=== PATIENT | female | born 1940 | race Caucasian/White ===

== ENCOUNTER 2018-10-13 08:19 | Day surgery (SDC) | payer MEDICARE, OTHER ==
[~2018-10-13] VITALS: Ht 152.4 cm; Wt 61.9 kg
[~2018-10-13 08:19] MED LIST: ACYC400T PO; ASPI-611 PO; BORT3.5V; CHOL200026 PO; DEC4T PO; DOCU100C41 PO; GABA-532 PO; LENA25CA PO; ONDA8TAB9 PO; OXYC10TA86 PO; POLY17PO10 PO; [UNRECOGNIZED DRUG - CODE] PO
[2018-10-13 08:34] VITALS: BP 119/95
[2018-10-13] MEDS ORDERED: LIDOcaine 1% 30ml preserv. free vial SQ ONE (09:00)
[2018-10-13] MEDS ORDERED: CALC600T12 PO (09:01)
[2018-10-13] MEDS ORDERED: FMLOS EACHEYE (09:01)
[2018-10-13] MEDS ORDERED: GABA600T13 PO (09:01)
[2018-10-13 09:34] VITALS: BP 112/68
[2018-10-13 09:45] VITALS: BP 119/72
[2018-10-13 10:00] VITALS: BP 123/73
[2018-10-13 10:15] VITALS: BP 120/70
== END 2018-10-13 10:27 | disposition home or self-care (01) ==
LOC: SSTAY O 08:19
PROVIDERS: ATTEND Radiology Diagnostic Radiology
DX: R22.1 Localized swelling, mass and lump, neck (principal)
CPT/HCPCS: 10160; 76942; J3490

== ENCOUNTER 2019-12-12 06:21 | Day surgery (SDC) | payer MEDICARE, OTHER ==
[2019-12-12] VITALS (8 sets, daily range): BP systolic 87–119; BP diastolic 37–53
[~2019-12-12] VITALS: Ht 152.4 cm; Wt 54.8 kg
[~2019-12-12 06:21] MED LIST changes: +CALC600T12 PO; +FMLOS EACHEYE; -GABA-532 PO; +GABA600T13 PO; -ONDA8TAB9 PO; -POLY17PO10 PO
[2019-12-12] MEDS ORDERED: normal saline 1000ml 1,000 ML IV PRN (06:45)
[2019-12-12] MEDS ORDERED: cefazolin/dext.iso 2gm/100ml 50 ML IV ONE (06:45)
[2019-12-12 07:53] LABS: HEMATOCRIT 30.7 % (35.0-45.0); HEMOGLOBIN 10.1 g/dl (12.0-16.0); MEAN CORPUSCULAR HEMOGLOBIN 30.6 PG (27.0-31.0); MEAN CORPUSCULAR HGB CONC 32.8 g/dL (33.0-36.5); MEAN CORPUSCULAR VOLUME 93.4 FL (78-98); MEAN PLATELET VOLUME 10.4 FL (7.4-10.4); PLATELET COUNT 105 X10'3 (140-440); RED BLOOD COUNT 3.28 X10'6 (4.20-5.60); RED CELL DISTRIBUTION WIDTH 16.6 % (11.5-14.5); WHITE BLOOD COUNT 1.2 X10'3 (4.5-11.0)
[2019-12-12 08:14] LABS: ANISOCYTOSIS 1+; PLATELET ESTIMATE DECREASED; TOTAL CELLS COUNTED 100
[2019-12-12] MEDS ORDERED: LIDOcaine 1%/PF 5ML 10 MG/ML VIAL ONE (08:47)
[2019-12-12] MEDS ORDERED: diphenhydrAMINE 50 mg/ml inj ONE (08:47)
[2019-12-12] MEDS ORDERED: fentaNYL/PF 50MCG/1 ML 2ML syringe ONE ×2 (08:47→09:18)
[2019-12-12] MEDS ORDERED: midazolam 2 mg/2 ml injection ONE (08:47)
[2019-12-12] MEDS ORDERED: iohexol 300 MG/1 ML 50ml polymer ONE (09:07)
[2019-12-12] MEDS ORDERED: normal saline 1000ml 1,000 ML IV SCH (10:30)
[2019-12-12] MEDS ORDERED: HYDROcodone/acetaminophen 5mg/325mg tablet PO PRN (10:30)
[2019-12-12] MEDS ORDERED: morphine 4 MG/ML inj SYRINge IV PRN (10:30)
== END 2019-12-12 13:30 | disposition home or self-care (01) ==
LOC: SSTAY O 06:21 → MED 3N 06:27 → SSTAY O 13:30
PROVIDERS: ATTEND Radiology Diagnostic Radiology
DX: M80.08XA Age-related osteoporosis with current pathological fracture, vertebra(e), initial encounter for fracture (principal); C90.00 Multiple myeloma not having achieved remission; M54.6 Pain in thoracic spine; Z79.899 Other long term (current) drug therapy; Z79.82 Long term (current) use of aspirin; Z79.01 Long term (current) use of anticoagulants
CPT/HCPCS: 22513; 36415; 85025; 85610; 99152; 99153; J1200; J2250; J3010; Q9967; C1713